=== PATIENT | male | born 1960 | race Hispanic/Latino ===

== ENCOUNTER 2024-07-18 11:57 | Emergency (ER) | payer OTHER ==
[~2024-07-18] VITALS: Ht 167.6 cm; Wt 81.6 kg
[2024-07-18 12:45] LABS: BASOPHILS # (AUTO) 0.05 K/uL (0.00-0.20); EOSINOPHILS # (AUTO) 0.24 K/uL (0.00-0.70); EOSINOPHILS % (AUTO) 4.7 % (0.0-8.0); IMMATURE GRANULOCYTE ABSOLUTE 0.01 K/uL (0-1); LYMPHOCYTES # (AUTO) 1.7 K/uL (1.0-4.8); LYMPHOCYTES % (AUTO) 33.9 % (21.0-51.0); MEAN CORPUSCULAR HGB CONC 35.3 g/dL (32.0-36.0); MEAN CORPUSCULAR VOLUME 87.8 fL (79-99); MONOCYTES # (AUTO) 0.4 K/uL (0.1-1.0); NEUTROPHILS # (AUTO) 2.7 K/uL (1.8-7.7); NEUTROPHILS % (AUTO) 52.2 % (40.0-77.0); PLATELET COUNT (AUTO) 298 K/uL (130-400); WHITE BLOOD COUNT (AUTO) 5.1 K/uL (4.8-10.8)
[2024-07-18 12:49] LABS: CREATININE 0.9 mg/dL (0.5-1.3); POTASSIUM 3.9 mmol/L (3.5-5.1)
--- NOTE | 2024-07-18 12:49 | EKG ---
[facility] Test Date: 2024-07-18 Test Time: 12:42:23 Pat Name: DAVID SLOAN Department: ED Room: Gender: Male Planning Assistant: [id number] : 1960 Requested By: ANGEL ARREGUIN Order Number: [id number] Reading MD: Measurements Intervals Converse Rate: 54 P: 3 IA: 131 QRS: 29 QRSD: 106 T: 25 QT: 401 QTc: 380 Interpretive Statements Sinus rhythm No previous ECG available for comparison Please click the below link to view image of tracing.
--- NOTE | 2024-07-18 12:50 | ERN ---
ED Note History of Present Illness Stated Complaint: FACIAL SLURRING,NUMBNESS Chief Complaint: Weakness Time Seen by MD: 12:00 Dictation: HISTORY OF PRESENT ILLNESS: 63-year-old male with h/o history of hard of hearing, presented to ED with complaints of worsening right-sided weakness for the past 5days. As per the patient, he noticed weakness on the right side of his face on while he was at work. He developed worsening of his symptoms-speech became more slurred as the days passed by. 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 Today morning he developed tingling sensation of his right upper extremity. He states that he is experiencing mild photophobia, drooping eyelid, slurring of speech, tingling sensation on the right upper arm, pain over left hip. He denies fever, nausea, vomiting, headache, chest pain, shortness of breath, any focal neurological weakness of the body or any trauma. At the time of presentation, his temperature is 98.1, pulse is 64, respiratory rate 20, blood pressure 136/82, pulse oximetry 99% on air. Allergies: Coded Allergies: No Known Drug Allergies (Unverified Allergy, Unknown, 07/18/24) Past Medical History Past Medical History: No Pertinent History Surgical History: None Review of System Dictation REVIEW OF SYSTEMS Positive for slurring of speech, right facial palsy, right arm tingling, left pelvic pain CONSTITUTIONAL: Denies fevers, chills, or night sweats. No unintentional weight loss reported. ENT: No hearing loss, otalgia, otorrhea, rhinitis, rhinorrhea, hoarseness, or sore throat. CARDIOVASCULAR: Denies any exertional angina, dyspnea on exertion, orthopnea, paroxysmal nocturnal dyspnea, palpitations claudication. PULMONARY: Denies any shortness of breath, cough, phlegm / sputum, hemoptysis, pleuritic chest pain. SLEEP: Denies morning headaches, daytime somnolence or napping. Denies diffi culty falling asleep, staying asleep, waking from sleep. Denies knowledge of snoring. GASTROINTESTINAL: Denies any type of dysphagia to either liquids or solids. Denies nausea, vomiting, abdominal pain, diarrhea, constipation, blood in stools . NEUROLOGICAL: Denies headache, motor weakness, sensory deficit, vertigo / spinning sensation, gait abnormalities, or tremors. GENITOURINARY: Denies frequency, urgency, nocturia, hematuria or incontinence, low urinary stream, straining to void, urinary intermittency or hesitancy ENDOCRINOLOGY: Denies polyuria, polydipsia, polyphagia or heat / cold intolerance. HEMATOLOGY: Denies thrombophilia / previous clots, or coagulopathy / bleeding disorders. ONCOLOGIC: Denies personal history of malignancy. DERMATOLOGIC: Denies rashes or pruritus. PSYCHIATRIC: Denies any suicidal or homicidal ideation. Denies hallucinations. Initial Vital Sign VS Vital Signs Date Time Temp Pulse Resp B/P (MAP) Pulse Ox O2 Delivery O2 Flow Rate FiO2 07/18/24 12:18 98.1 64 20 136/82 99 Room Air 0 07/18/24 12:41 21 Physical Exam Dictation PHYSICAL EXAM GENERAL APPEARANCE: Well nourished . Awake and alert. Oriented to time, place and person. No acute cardiopulmonary distress. HEENT: Head normocephalic , atraumatic. Sclera anicteric . Pupils are round and reactive. Right eye any drooping. Red reflex present bilateral eyes. NECK: Supple. No JVD. No thyromegaly. No submental, submandibular, pre-/posta uricular, occipital or supraclavicular lymphadenopathy. No carotid bruits. CHEST: Normal chest expansion. No Telemetry. LUNGS: Clear to auscultation bilaterally . No rales, rhonchi or any wheezing. Equal tactile fremitus. Resonant to percussion . CARDIOVASCULAR: Regular rate and rhythm. S1 and S2 normal. No rubs, murmurs or gallops. ABDOMEN: Soft, nontender, and nondistended. There is no rebound tenderness, voluntary guarding, or rigidity. No hepatosplenomegaly. Bowel sounds normal in all four quadrants . NEUROLOGICAL: Right side face: sparing of frontal area, ptosis of right upper eye lid, loss of right nasolabial fold, Mouth deviated to left on smiling , tongue on protrusion deviated to right .. Motor Power : 4/5 rt upper and lower extremity , decreased ankle jerk and knee jerk on right side .decreased touch and pin prick sensation rt upper and lower extremity . EXTREMITIES: No edema, No cyanosis , No clubbing. Good capillary refill. SKIN: dermatitis over inguinal folds . PSYCHIATRY: Normal affect .No auditory or visual hallucinations. Normal speech. No dysarthria. Results (Laboratory/Radiology) Laboratory/Radiology Laboratory Tests Test 07/18/24 12:35 White Blood Count 5.1 K/uL (4.8-10.8) Red Blood Count 4.90 MIL/uL (4.50-6.20) Hemoglobin 15.2 g/dL (14.0-18.0) Hematocrit 43.0 % (42-54) Mean Corpuscular Volume 87.8 fL (79-99) Mean Corpuscular Hemoglobin 31.0 pg (27.0-33.0) Mean Corpuscular Hemoglobin Concent 35.3 g/dL (32.0-36.0) Red Cell Distribution Width 13.0 % (11.0-15.5) Platelet Count 298 K/uL (130-400) Mean Platelet Volume 8.3 fL (7.5-10.5) Immature Granulocyte % (Auto) 0.2 % (0-1) Neutrophils (%) (Auto) 52.2 % (40.0-77.0) Lymphocytes (%) (Auto) 33.9 % (21.0-51.0) Monocytes (%) (Auto) 8.0 % (3.0-13.0) Eosinophils (%) (Auto) 4.7 % (0.0-8.0) Basophils (%) (Auto) 1.0 % (0.0-5.0) Neutrophils # (Auto) 2.7 K/uL (1.8-7.7) Lymphocytes # (Auto) 1.7 K/uL (1.0-4.8) Monocytes # (Auto) 0.4 K/uL (0.1-1.0) Eosinophils # (Auto) 0.24 K/uL (0.00-0.70) Basophils # (Auto) 0.05 K/uL (0.00-0.20) Absolute Immature Granulocyte (auto 0.01 K/uL (0-1) Nucleated Red Blood Cells 0.0 % (0.0-0.19) Prothrombin Time 10.1 SEC (9.6-11.6) Prothromb Time International Ratio 0.95 (0.85-1.15) Sodium Level 140 mmol/L (136-145) Potassium Level 3.9 mmol/L (3.5-5.1) Chloride Level 103 mmol/L (101-111) Carbon Dioxide Level 27 mmol/L (21-32) Blood Urea Nitrogen 11 mg/dL (7-18) Creatinine 0.9 mg/dL (0.5-1.3) Glomerular Filtration Rate Calc 97 mL/min (>90) Random Glucose 127 mg/dL (70-105) H Hemoglobin A1c 5.7 % (4.0-6.0) Estimated Average Glucose (eAG) 117 mg/dL (70-126) Total Calcium 9.1 mg/dL (8.5-10.1) Triglycerides Level 210 mg/dL (30-200) H Cholesterol Level 198 mg/dL (<200) LDL Cholesterol 111 mg/dL (0-99) H HDL Cholesterol 53 mg/dL (29-71) ED Course ED Course Orders Procedure Category Date Status Time Cbc With Differential LAB 07/18/24 Complete 12:31 Basic Metabolic Panel LAB 07/18/24 Complete 12:31 Prothrombin Time With LAB 07/18/24 Complete INR 12:31 Ct Head/Brain W/O CT 07/18/24 Resulted Contrast 12:31 12 Lead Ekg Tracing- EKG 07/18/24 Complete Technical 12:31 Hemoglobin A1c LAB 07/18/24 Complete 12:33 Lipid Panel LAB 07/18/24 Complete 12:33 Hip Unilat 2-3vw Left RAD 07/18/24 Resulted 12:33 Aspirin 325mg Tab PHA 07/18/24 Complete (Aspirin 325mg Tab) 15:30 Current Medications Medications (Trade) Dose Ordered Sig/Aldair Route PRN Reason Start Time Stop Time Status Last Admin Dose Admin Aspirin (Aspirin 325mg Tab) 325 mg ONCE ONCE PO 07/18/24 15:30 07/18/24 15:36 DC 07/18/24 15:37 Vital Signs Date Time Temp Pulse Resp B/P (MAP) Pulse Ox O2 Delivery O2 Flow Rate FiO2 07/18/24 17:30 98.2 62 16 126/76 98 Room Air* 0 21 07/18/24 16:02 98.1 61 16 126/73 98 Room Air* 0 21 07/18/24 12:41 98.2 63 16 127/92 98 Room Air* 0 21 07/18/24 12:18 98.1 64 20 136/82 99 Room Air 0 Medical Decision Making MDM Differential diagnosis : Acute cerebrovascular accident, Khanna's palsy Rationale: Tests considered and ordered secondary to shared decision making include: I will re-evaluate the patient after treatment and diagnostic exams have returned to determine whether they require further testing, can be safely discharged home, or need admission for further treatment and evaluation. Given the social determinants of health affecting care, including literacy, access to medical care, prescription drug management, and [id number] drugs, I will ensure that treatment plans are tailored accordingly. There are no social concerns with this patient. Risk of complication and/or morbidity or mortality of patient management: None Need for hospitalization: Patient does not meet criteria for hospitalization. Need for emergency major/minor surgery: No Prescription drug management Prescriptions will include symptomatic care Medications-Per medication reconciliation Previous outside records reviewed: Old ER visits. Patient's prior external medical records from other ER visits were reviewed by me as indicated. Prior testing and results from previous visits were reviewed. Prior tests were taken into account with medical decision making and resource utilization, independent historian/historians were used to obtain complete medical history. I independently interpreted the test that were performed, results were reviewed by me and considered findings on radiology. Medical management and examination interpretation discussions was done by me with other qualified healthcare professionals as indicated for the patient's care. Revaluation: Patient remained stable during the ED course. Discussed with the patient and bystanders the possible diagnosis and care required. Unfortunately , [facility] doesnot have inpatient Neurology services at this time. Patient confirms understanding. Disposition : Patient will be transferred to [facility] for further evaluation and management of acute stroke Stroke Patient?: Ischemic Is Patient Candidate for t-PA?: No Did the Patient Receive t-PA?: No NIH STROKE SCALE: NIH STROKE SCALE Response (Comments) Value Level of Consciousness Alert 0 Ask patient month and their age Answers both correct 0 Command to open eyes, make fist and let go Obeys both correct 0 Best gaze (horizontal eye movement) Partial Gaze Palsy 1 Visual Field Testing No Visual Field Loss 0 Facial Paresis Complete Paralysis 3 Motor Function - Left Arm Normal 0 Motor Function - Right Arm Normal 0 Motor Function - Left Leg Normal 0 Motor Function - Right Leg Normal 0 Limb Ataxia No Ataxia 0 Sensory-pin prick to arms, legs, trunk and face Mild to Moderate Decrease 1 Best Language (describe picture, name items and read) No Aphasia 0 Dysarthria (read several words) Mild-Mod. Slurring Words 1 Extinction and Inattention Normal 0 Total 6 DX & DISP Disposition: Transfer Departure Impression: Primary Impression: Stroke Critical Time: 30 minutes (Critical Care Procedure NoteAuthorized and Performed by: meTotal critical care time: Approximately 36 minutesDue to a high probability of clinically significant, life threatening deterioration, the patient required my highest level of preparedness to intervene emergently and I personally spent this critical care time directly and personally managing the patient. This critical care time included obtaining a history; examining the patient; pulse oximetry; ordering and review of studies; arranging urgent treatment with development of a management plan; evaluation of patient's response to treatment; frequent reassessment; and, discussions with other providers.This critical care time was performed to assess and manage the high probability of imminent, life-threatening deterioration that could result in multi-organ failure. It was exclusive of separately billable procedures and treating other patients and teaching time.Please see MDM section and the rest of the note for further information on patient assessment and treatment.) Condition: Stable Additional Instructions: Patient is transferred to [facility] for further evaluation and management of acute strokes Referrals: SELF,REFERRAL (PCP) I performed a substantive portion of the visit. I have reviewed and personally made and approve the management plan that is documented in the notes by myself with TOBI/resident. I acknowledged full responsibility for the patient's management plan. 63-year-old male stroke-like symptoms. Not a candidate for TNK because the symptoms have been present for multiple days. NIH SS of four. CT head without contrast unremarkable. Independently interpreted by me. Labs stable. EKGs stable. Given aspirin. Transferred to [facility] for neurologic consultation. ANGEL ARREGUIN MD Jul 18, 2024 12:50 CELSO SALINAS DO Jul 19, 2024 11:45
[2024-07-18 12:52] LABS: INR 0.95 (0.85-1.15); PROTHROMBIN TIME 10.1 SEC (9.6-11.6)
[2024-07-18 12:53] LABS: HEMOGLOBIN A1C 5.7 % (4.0-6.0)
[2024-07-18 12:55] LABS: CHOLESTEROL 198 mg/dL (<200); HDL CHOLESTEROL 53 mg/dL (29-71); LDL DIRECT 111 mg/dL (0-99); TRIGLYCERIDES 210 mg/dL (30-200)
--- NOTE | 2024-07-18 13:07 | NUR ---
TRANSFER REQUEST FOR NEUROLOGY SERVICE FOR ACUTE STROKE BY DR WORTH. REGALADO RN
--- NOTE | 2024-07-18 14:00 | HMCIMG ---
CT HEAD/BRAIN W/O CONTRAST HISTORY: Left-sided weakness COMPARISON: None TECHNIQUE: Multiple sequential axial images of the head were obtained from the base of the skull through vertex. Patient was not given contrast through intravenous route. FINDINGS: The ventricles and extraventricular CSF spaces are nondilated for patient's age. There is no midline shift, mass effect or herniation. No acute intracranial bleed is seen. Visualized portion of the paranasal sinuses are grossly within normal limits. IMPRESSION: 1. No acute intracranial bleed is seen. CT was performed with one or more following dose reduction techniques: automated exposure control, adjustment of the mA and kv according to patient's size, or use of a iterative reconstruction technique.
--- NOTE | 2024-07-18 14:58 | HMCIMG ---
HIP UNILAT 2-3VW LEFT HISTORY: Left hip pain COMPARISON: None TECHNIQUE: 2 images of left hip were obtained. FINDINGS: There is no acute displaced fracture or dislocation. Degenerative changes are seen. IMPRESSION: 1. Findings as described above.
[2024-07-18] MEDS: ASPIRIN 325MG TAB PO ONE (15:37)
--- NOTE | 2024-07-18 15:41 | NUR ---
TRANSFER CALL PLACE TO [facility] [phone] SPOKE WITH LEANNE INTAKE NURSE INFORMATION PROVIDED AND AWAITING CALL BACK. SABINE FITZPATRICK
--- NOTE | 2024-07-18 16:00 | NUR ---
TRANSFER NURSE CALL BACK WITH ACCEPTANCE UNDER DR JOSE HERNANDEZ AT [phone] TO [facility] AND PRIMARY NURSE TO CALL REPORT TO [phone] AND [facility] WHEN READY. SABINE FITZPATRICK
--- NOTE | 2024-07-18 16:52 | NUR ---
REPORT CALLED [facility] REPORT TAKEN BY SERAFIN HORN NURSE CURRENTLY WAITING FOR TRANSPO
--- NOTE | 2024-07-18 16:58 | NUR ---
[facility] CONTACTED WILL RESEND EMS PPWRK INFO AGAIN
[2024-07-18 17:30] VITALS: BP 126/76; PULSE 62; RESP 16; TEMP 98.3; O2SAT 98
--- NOTE | 2024-07-18 17:32 | NUR ---
[facility] ARRIVED AT THIS TIME FOR TRANSPO TO [facility]
== END 2024-07-18 17:32 | disposition short-term general hospital (02) ==
LOC: EDH 11:57
DX: R53.1 Weakness (principal)
CPT/HCPCS: 36415; 70450; 73502; 80048; 80061; 83036; 85025; 85610; 93005; 99291